=== PATIENT | male | born 1975 | race Caucasian/White ===

== ENCOUNTER 2016-12-12 17:40 | Emergency (ER) | payer BC ==
[~2016-12-12 17:40] MED LIST: ADVAIR 25028 BLISTE1 PO; CEFDINIR300 M1 PO; CELEXA; CELEXA10 M1; CYCLOBENZAPRINE10 M1 PO; ESTER-C 500 MG1 EACH PO; LEVAQUIN500 M1 PO; MAGNESIUM400 M1 PO; MUCINEX600 M1 PO; MULTIVITAMINS1 EAC6 PO; NORCO 5-325 TA1 EACH PO; NORCO 5/3251 TAB PO; OMEPRAZOLE40 M2 PO; POLY-VI-SOL WIT50 ML PO; PREDNISONE20 M1 PO; PROAIR HFA8.5 GM IH; PROVIGIL200 M1 PO; SINGULAIR10 M1 PO; VIIBRYD20 M1 PO
[2016-12-12] MEDS ORDERED: IPRAT-ALBUT 0.5-3 ML IH (19:08)
[2016-12-12] MEDS ORDERED: VENTOLIN HFA18 G2 PO (19:09)
[2016-12-12 19:48] LABS: BASO % 0.4 % (0-2); EOS % 1.7 % (0-7); EOSINOPHIL ABSOLUTE COUNT 0.1 tho/cmm (0.0-0.7); HCT-HEMATOCRIT 43.8 % (36.0-53.5); HGB-HEMOGLOBIN 15.8 gm/dl (13.5-17.0); IMMATURE GRANULOCYTES ABSOLUTE 0.01 tho/cmm (0-0.03); IMMATURE GRANULOCYTES PERCENT 0.2 % (0-0.3); LYMPH % 35.2 % (20-45); LYMPH ABSOLUTE COUNT 1.8 tho/cmm (0.8-4.5); MCH (MEAN CORPUSCULAR HGB) 32.8 pg (28.0-32.0); MCHC MEAN CORPUSCULAR HGB CONC 36.1 % (32.0-36.0); MCV (MEAN CELL VOLUME) 91.1 fl (82.0-96.0); MEAN PLATELET VOLUME 9.9 cmc (9.4-12.4); MONOCYTE ABSOLUTE COUNT 0.5 tho/cmm (0.0-1.2); NEUTROPHIL ABSOLUTE COUNT 2.7 tho/cmm (1.6-8.0); NEUTROPHIL-AUTOMATED 2.7 tho/cmm (1.6-8.0); NEUTROPHILS % 52.5 % (40-80); PLATELET COUNT 194 tho/cmm (150-450); RED BLOOD COUNT 4.81 mil/cmm (4.40-5.70); WHITE BLOOD COUNT 5.2 tho/cmm (4.0-10.0)
[2016-12-12 20:01] LABS: ANION GAP 12 mmol/L (0-20); BLOOD UREA NITROGEN 13 mg/dl (6-24); CALCIUM 8.7 mg/dl (8.5-10.5); CARBON DIOXIDE-VENOUS 25 mmol/L (22-32); CHLORIDE 111 mmol/l (96-110); CREATININE 0.95 mg/dl (0.60-1.30); GLUCOSE 92 mg/dL (70-110); SODIUM 144 mmol/L (135-145); eGFR VALUE FOR BLACK >90 mL/Min
[2016-12-12] MEDS ORDERED: DELTASONE20 MG PO (20:25)
== END 2016-12-12 20:30 ==
LOC: EDMED 17:40
PROVIDERS: Emergency Medicine
DX: J45.901 Unspecified asthma with (acute) exacerbation (principal); K21.9 Gastro-esophageal reflux disease without esophagitis; Z79.51 Long term (current) use of inhaled steroids; Z79.899 Other long term (current) drug therapy; Z90.49 Acquired absence of other specified parts of digestive tract
CPT/HCPCS: J7512